=== PATIENT | female | born 1995 | race Caucasian/White ===

== ENCOUNTER → 2019-11-14 10:39 | Outpatient (BNVA) | payer MEDICAID, SELFPAY | PROVIDERS: Visit Provider Obstetrics & Gynecology | DX: Z34.81 Encounter for supervision of other normal pregnancy, first trimester (principal); O21.9 Vomiting of pregnancy, unspecified; Z14.1 Cystic fibrosis carrier | CPT/HCPCS: 80053; 80307; 84315; 85027; 86592; 86762; 86803; 86850; 86900; 87340 ==

== ENCOUNTER → 2019-11-29 08:40 | Outpatient (BNVA) | payer MEDICAID, SELFPAY | PROVIDERS: Visit Provider Obstetrics & Gynecology | DX: Z12.4 Encounter for screening for malignant neoplasm of cervix (principal); O99.320 Drug use complicating pregnancy, unspecified trimester; O21.9 Vomiting of pregnancy, unspecified; Z14.1 Cystic fibrosis carrier | CPT/HCPCS: 84315; 87491; 87591; 88175 ==

== ENCOUNTER → 2019-12-27 11:31 | Outpatient (BNVA) | payer MEDICAID, SELFPAY | PROVIDERS: Visit Provider Nurse Practitioner Women's Health | DX: O99.322 Drug use complicating pregnancy, second trimester; Z14.1 Cystic fibrosis carrier; F12.90 Cannabis use, unspecified, uncomplicated; Z3A.16 16 weeks gestation of pregnancy | CPT/HCPCS: 80307; 81000 ==